=== PATIENT | male | born 1960 | race American Indian/Alaskan Native ===

== ENCOUNTER 2017-08-21 12:08 | Emergency (ER) | payer SELFPAY ==
[2017-08-21 12:25] VITALS: BP 111/86
[2017-08-21 12:56] LABS: Basophils # (Auto) 0.1 K/mm3 (0.0-0.1); Basophils % (Auto) 0.9 % (0.0-1.8); Eosinophils # (Auto) 0.2 K/mm3 (0.0-0.4); Eosinophils % (Auto) 2.6 % (0.0-4.3); Hematocrit 49.6 % (35.5-45.6); Hemoglobin 15.7 gm/dl (11.8-15.2); Lymphocytes # (Auto) 2.2 K/mm3 (1.2-5.4); Lymphocytes % (Auto) 30.5 % (13.4-35.0); Mean Corpuscular HGB Conc 32 % (32-34); Mean Corpuscular Volume 79 fl (84-94); Monocytes # (Auto) 0.9 K/mm3 (0.0-0.8); Monocytes % (Auto) 12.5 % (0.0-7.3); Red Blood Count 6.32 M/mm3 (3.65-5.03); Red Cell Distribution Width 16.6 % (13.2-15.2)
[2017-08-21 12:59] LABS: Mean Corpuscular Hemoglobin 25 pg (28-32)
[2017-08-21 13:04] LABS: INR 0.82 (0.87-1.13)
[2017-08-21 13:05] LABS: Partial Thromboplastin Time 29.4 Sec. (24.2-36.6)
[2017-08-21 13:25] LABS: Alanine Aminotransferase 46 units/L (7-56); Albumin 4.7 g/dL (3.9-5); BUN/Creatinine Ratio 13; Blood Urea Nitrogen 15 mg/dL (9-20); Calcium 9.4 mg/dL (8.4-10.2); Hemolysis Index 17; Lipase 105 units/L (13-60)
[2017-08-21 13:34] LABS: Platelet Count 108 K/mm3 (140-440)
== END 2017-08-21 12:28 | disposition left against medical advice (07) ==
LOC: ED 12:08
DX: R04.0 Epistaxis (principal); J02.9 Acute pharyngitis, unspecified; Z53.21 Procedure and treatment not carried out due to patient leaving prior to being seen by health care provider
CPT/HCPCS: 36415; 80053; 83690; 85025; 85610; 85730; 86850; 86900; 86901

== ENCOUNTER 2021-08-06 11:04 | Emergency (ER) | payer OTHER ==
[2021-08-06 11:26] VITALS: BP 132/93
--- NOTE | 2021-08-06 15:42 | Emergency Department Report ---
[facility] Chief Complaint: Eye Problems Stated Complaint: EYE INFECTION Severity: moderate Symptoms: Yes Eye Itching, Yes Eye Redness, Yes Purulent Drainage, Yes Blurred Vision (Pt state he blind due to glaucoma), Yes H/O Allergic Rhinitis, No Eye Pain, No Mucous Drainage, No Contact Lens Use, No Trauma, No Fever, No Headache Other History: 61-year-old male presents to the ED with complaint redness to the right and awakened this morning after sitting outside of the day with admitted together with drainage noted. Patient states that he had to use a warm compress to pry open. Patient states that he has glaucoma and his right and has blindne ss and unable to see. 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 No acute distress noted. No ill appearance noted. ED Review of Systems ROS: Stated complaint: EYE INFECTION Other details as noted in HPI Constitutional: denies: chills, fever Eyes: eye discharge. denies: eye pain, vision change ENT: denies: ear pain, throat pain Respiratory: denies: cough, shortness of breath, wheezing Cardiovascular: denies: chest pain, palpitations Endocrine: no symptoms reported Gastrointestinal: denies: abdominal pain, nausea, diarrhea Genitourinary: denies: urgency, dysuria Musculoskeletal: denies: back pain, joint swelling, arthralgia Skin: denies: rash, lesions Neurological: denies: headache, weakness, paresthesias Psychiatric: denies: anxiety, depression Hematological/Lymphatic: denies: easy bleeding, easy bruising ED Past Medical Hx - Past Medical History Additional medical history: NONHODGKINS LYMPHOMA IN 2012 - Surgical History Additional Surgical History: Port right chest - Social History Smoking Status: Current Every Day Smoker Substance Use Type: Alcohol - Medications Home Medications: Home Medications Medication Instructions Recorded Confirmed Last Taken Type Brimonidine Tartrate/Timolol 5 ml OU QDAY 07/12/16 07/12/16 07/12/16 History [Combigan 0.2%-0.5% Eye Drops] Erythromycin [Erythromycin Ophth 10 applic OP BID 5 Days #1 tube 08/06/21 Unknown Rx Oint] [facility] Exam - Exam General: Vital signs noted. No distress. Alert and acting appropriately. Eye Exam: Neither Injection, Neither Chemosis, Neither Abnormal Pupil, Neither EOMI, Neither Eye Foreign Body, Neither Lid Foreign Body, Neither Mucous Discharge, Neither Purulent Discharge, Neither Fluorescein Uptake, Neither Fluorescein Uptake (slit lamp), Neither Cell/Flare (slit lamp), Neither Corneal Edema, Neither Photophobia HEENT: No Nasal Congestion, No Pharyngeal Erythema Remainder of HEENT: Normal Lungs: Yes Clear Lung Sounds, Yes Good Air Exchange, No Wheezes, No Stridor, No Cough, No Nasal Flaring, No Retractions, No Use of Accessory Muscles ED Course Vital Signs 08/06/21 11:25 Temperature 98.6 F Pulse Rate 101 H Respiratory 20 Rate Blood Pressure 132/93 O2 Sat by Pulse 97 Oximetry ED Medical Decision Making - Medical Decision Making 61-year-old male presents to the ED with complaint redness to the right and awakened this morning after sitting outside of the day with admitted together with drainage noted. Patient states that he had to use a warm compress to pry open. Patient states that he has glaucoma and his right and has blindness and unable to see. 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 No acute distress noted. No ill appearance noted. Physical examination noted redness to the right eye. We will treat patient for conjunctivitis patient to follow-up with Dr. Whitaker ophthalmology on Monday return to [facility]. Rechecked the patient is resting quietly quietly and comfortable and feeling better. I discussed the results of diagnostic study, my clinical impression and the plan for further treatment with the patient. Patient agrees with plan and discharge at this present time. All question addressed. I have given the patient instruction regarding a diagnosis ,expectation ,follow- up and return precaution. I explained to the patient that emergent condition may arise and to return to the ED for new worsen and any new persisting condition. I have explained the importance of following up with the primary care physician or referral physician listed below has instructed. The patient verbalized understanding of discharge instruction. Critical care attestation.: If time is entered above; I have spent that time in minutes in the direct care of this critically ill patient, excluding procedure time. ED Disposition Clinical Impression: Conjunctivitis Qualifiers: Conjunctivitis type: acute Acute conjunctivitis type: unspecified Laterality: right Qualified Code(s): H10.31 - Unspecified acute conjunctivitis, right eye Disposition: HOME / SELF CARE / HOMELESS Is pt being admited?: No Does the pt Need Aspirin: No Condition: Stable Instructions: Viral Conjunctivitis, Adult, Allergic Conjunctivitis, Adult, [id number] Additional Instructions: Follow-up with Dr. Ramirez eye doctor return home Return to ED for any worsening symptoms Take medication as prescribed Prescriptions: Erythromycin [Erythromycin Ophth Oint] 10 applic OP BID 5 Days #1 tube Referrals: PRIMARY CARE,MD [Primary Care Provider] - 3-5 Days YASMANI MOREJON DO [Staff Physician] - 3-5 Days
== END 2021-08-06 17:10 | disposition home or self-care (01) ==
LOC: ED 11:04
DX: H10.9 Unspecified conjunctivitis (principal); F17.200 Nicotine dependence, unspecified, uncomplicated; Z72.89 Other problems related to lifestyle
CPT/HCPCS: 99281